=== PATIENT | male | born 1955 ===

== ENCOUNTER 2020-10-02 06:00 | Outpatient (RCR) | payer MEDICARE, SELFPAY | END 2020-10-23 23:59 | disposition home or self-care (01) | LOC: MST 06:00 | PROVIDERS: PCP Family Medicine; Referring Provider Nurse Practitioner Family; Visit Provider Nurse Practitioner Family | DX: I69.30 Unspecified sequelae of cerebral infarction (principal); R47.01 Aphasia | CPT/HCPCS: 92523 ==

== ENCOUNTER 2020-11-20 06:00 | Outpatient (RCR) | payer MEDICARE, SELFPAY | END 2020-11-23 23:59 | disposition home or self-care (01) | LOC: SST 06:00 | PROVIDERS: PCP Family Medicine; Referring Provider Nurse Practitioner Family; Visit Provider Nurse Practitioner Family | DX: I69.920 Aphasia following unspecified cerebrovascular disease (principal) | CPT/HCPCS: 92607; 92608 ==

== ENCOUNTER 2021-01-24 06:00 | Outpatient (RCR) | payer MEDICARE, SELFPAY | END 2021-02-23 23:59 | disposition home or self-care (01) | LOC: MST 06:00 | PROVIDERS: PCP Family Medicine; Referring Provider Nurse Practitioner Family; Visit Provider Nurse Practitioner Family | DX: I69.320 Aphasia following cerebral infarction (principal) | CPT/HCPCS: 92609 ==